=== PATIENT | female | born 1970 | race Caucasian/White ===

== ENCOUNTER 2017-12-18 01:03 | Emergency (ER) | payer BC ==
[~2017-12-18] VITALS: Ht 180.3 cm; Wt 51.7 kg
[2017-12-18 01:06] VITALS: Ht 180.3 cm; Wt 51.7 kg
[2017-12-18] MEDS ORDERED: NEURONTIN600 MG PO (01:07)
[2017-12-18] MEDS ORDERED: BUTALB-APAP-CA1 EACH PO (01:07)
[2017-12-18] MEDS ORDERED: CELEXA10 MG PO (01:08)
[2017-12-18] MEDS ORDERED: TYLENOL W/CODEI1 TAB PO (01:08)
[2017-12-18] MEDS ORDERED: XANAX1 MG PO (01:08)
[2017-12-18] MEDS ORDERED: DEPAKOTE500 MG (01:09)
[2017-12-18] MEDS ORDERED: TORADOL10 MG PO (01:46)
[2017-12-18 02:16] VITALS: BP 129/87
== END 2017-12-18 02:16 | disposition home or self-care (01) ==
LOC: D.ER 01:03
DX: S80.02XA Contusion of left knee, initial encounter (principal); V09.9XXA Pedestrian injured in unspecified transport accident, initial encounter; Y93.01 Activity, walking, marching and hiking; Y92.410 Unspecified street and highway as the place of occurrence of the external cause; G40.909 Epilepsy, unspecified, not intractable, without status epilepticus